=== PATIENT | male | born 1995 | race Caucasian/White ===

== ENCOUNTER 2017-10-30 20:47 | Emergency (ER) | payer SELFPAY, MEDICAID ==
[2017-10-30] MEDS: PROPARACAINE HCL 0.5% OPHT SOLN 15 ML BTL LEFT EYE (21:52)
[2017-10-30] MEDS: FLUORESCEIN SOD 1 MG STRIP RIGHT EYE (21:52)
== END 2017-10-30 22:05 | disposition home or self-care (01) ==
LOC: NEPD 20:47
DX: S05.02XA Injury of conjunctiva and corneal abrasion without foreign body, left eye, initial encounter (principal); W34.010A Accidental discharge of airgun, initial encounter
CPT/HCPCS: 99283